=== PATIENT | female | born 1955 | race African-American/Black ===

== ENCOUNTER 2019-05-08 07:50 | Outpatient (CLI) | payer BC ==
--- NOTE | 2019-05-08 08:25 | BD ---
EXAM: Bone densitometry using DEXA HISTORY: 63 yo female. Screening for postmenopausal osteoporosis FINDINGS: L1--bone mineral density 0.818 g/sq cm; T score -1.6 ; Z score 0.0 L2--bone mineral density 0.938 g/sq cm; T score -0.8 ; Z score 1.0 L3--bone mineral density 0.969 g/sq cm; T score -1.0 ; Z score 0.8 L4--bone mineral density 0.937 g/sq cm; T score -1.1 ; Z score 0.8 Total L1-L4--bone mineral density 0.917 g/sq cm; T score -1.2 ; Z score 0.6 Left femoral neck--bone mineral density0.734; T score -1.0 ; Z score 0.5 Total proximal left femur--bone mineral density 1.017; T score 0.6 ; Z score 1.9 The 10 year fracture risk for a major osteoporotic fracture is 13% and for a hip fracture is 1%. IMPRESSION: Osteopenia
== END 2019-05-08 07:51 | disposition home or self-care (01) ==
LOC: BICMAMMO 07:50
PROVIDERS: ATTEND Physician Assistant
DX: M85.89 Other specified disorders of bone density and structure, multiple sites (principal)
CPT/HCPCS: 77080

== ENCOUNTER 2021-05-12 11:14 | Outpatient (CLI) | payer BC, MEDICARE ==
[2021-05-12 14:19] LABS: #Basophils 0.1 thou/uL (0.0-0.2); #Eosinphils 0.2 thou/uL (0.0-0.7); #Lymphocytes 0.8 thou/uL (1.20-3.40); #Monocytes 0.4 thou/uL (0.11-0.59); #Neutrophils 2.6 thou/uL (1.40-6.50); %Basophils 1.4 % (0.0-1.0); %Eosinophils 3.8 % (0.0-10.0); %Lymphocytes 20.7 % (21.0-51.0); %Monocytes 8.9 % (0.0-10.0); %Neutrophils 65.2 % (42.0-75.0); Hemoglobin 14.4 g/dL (12.0-16.0); Mean Corpuscular HGB CONC 32.3 g/dL (32.0-36.0); Mean Corpuscular Hemoglobin 29.9 pg (27.0-31.0); Mean Corpuscular Volume 92.5 fL (78.0-98.0); Mean Platelet Volume 7.7 fL (7.4-10.4); Platelet Count 213 thou/uL (130-400); RBC Distribution Width 12.8 % (11.5-14.5); Red Blood Cell (RBC) Count 4.83 mill/uL (4.20-5.40)
[2021-05-12 14:42] LABS: ALT (SGPT) 17 U/L (8-55); AST (SGOT) 23 U/L (5-34); Albumin 4.2 g/dL (3.4-4.8); Alkaline Phosphatase 75 U/L (40-110); Anion Gap 13 mmol/L (10-20); BUN (Urea Nitrogen) 15 mg/dL (9.8-20.1); Bilirubin, Total 0.4 mg/dL (0.2-1.2); Calc. Creatinine Clearance 0 mL/min (70-130); Calcium 9.3 mg/dL (7.8-10.44); Carbon Dioxide 26 mmol/L (23-31); Chloride 105 mmol/L (98-107); Cholesterol 334 mg/dl (< 200 Desired); Globulin 2.9 g/dL (2.4-3.5); Glucose 97 mg/dL (80-115); Potassium 3.9 mmol/L (3.5-5.1); Protein, Total 7.1 g/dL (5.8-8.1); Sodium 140 mmol/L (136-145); Triglycerides 37 mg/dL (Less than 150)
[2021-05-12 14:49] LABS: Bacteria/HPF None Seen HPF (None Seen); Bilirubin Negative (Negative); Blood, Urine Negative (Negative); Clarity Clear (Clear); Glucose, Urine (Dipstick) Normal (Negative); Ketone, Urine Negative (Negative); Leukocyte Negative Leu/uL (Negative); Nitrite Negative (Negative); Protein, Urine (Dipstick) 10 mg/dL (Neg-Trace); RBC/HPF 0-3 HPF (0-3); Specific Gravity, Urine 1.025 (1.002-1.036); Squamous Epithelial 0-3 HPF (0-3); Urobilinogen Normal mg/dL (Less than 2); WBC/HPF None Seen HPF (0-3)
[2021-05-12 15:18] LABS: HDL Cholesterol 139 mg/dL (>60 Neg Risk)
[2021-05-12 15:19] LABS: LDL Cholesterol, Calculated 188 mg/dL
[2021-05-12 15:20] LABS: Cardiac Risk 2.4 (Less than 4.5)
== END 2021-05-12 11:15 | disposition home or self-care (01) ==
LOC: SCSRAD 11:14
PROVIDERS: ATTEND Physician Assistant
DX: Z00.00 Encounter for general adult medical examination without abnormal findings (principal); M50.122 Cervical disc disorder at C5-C6 level with radiculopathy
CPT/HCPCS: 36415; 72040; 80053; 80061; 81001; 85025

== ENCOUNTER 2024-01-25 09:19 | Outpatient (CLI) | payer BC, MEDICARE | END 2024-01-25 09:20 | disposition home or self-care (01) | LOC: MRI 09:19 | PROVIDERS: ATTEND Internal Medicine | DX: M47.26 Other spondylosis with radiculopathy, lumbar region (principal); M47.815 Spondylosis without myelopathy or radiculopathy, thoracolumbar region; G95.89 Other specified diseases of spinal cord | CPT/HCPCS: 72148 ==